=== PATIENT | female | born 1960 | race Two or more races ===

== ENCOUNTER → 2025-05-06 | Emergency (ER) | payer BC ==
[~2025-05-06] VITALS: Ht 157.5 cm; Wt 77.1 kg
[~2025-05-06] MED LIST: GUAIFENESIN 200 MG/10 ML BLIST.PACK PO ONE; KETOROLAC TROMETHAMINE 60 MG VIAL IM ONE
[2025-05-06 09:55] LABS: COVID-19 AG NEGATIVE (NEGATIVE)
== END | disposition home or self-care (01) ==
LOC: ER 06:47
PROVIDERS: General Practice
DX: J34.9 Unspecified disorder of nose and nasal sinuses (principal); J02.9 Acute pharyngitis, unspecified; Z20.822 Contact with and (suspected) exposure to COVID-19